=== PATIENT | male | born 1965 | race Caucasian/White ===

== ENCOUNTER → 2020-09-15 13:20 | Outpatient (CLI) | payer OTHER, SELFPAY ==
[2020-09-15] MEDS: COVID-19 VACC #1, MRNA(MOD) 100 MCG/0.5 ML VIAL IM (13:28)
== END ==
PROVIDERS: Visit Provider Internal Medicine
DX: Z23 Encounter for immunization (principal)
CPT/HCPCS: 0011A; 91301

== ENCOUNTER → 2020-10-13 13:09 | Outpatient (CLI) | payer OTHER, SELFPAY ==
[2020-10-13] MEDS: COVID-19 VACC #2, MRNA(MOD) 100 MCG/0.5 ML VIAL IM (13:19)
== END ==
PROVIDERS: Visit Provider Internal Medicine
DX: Z23 Encounter for immunization (principal)
CPT/HCPCS: 0012A; 91301

== ENCOUNTER 2021-06-13 02:02 | Emergency (ER) | payer OTHER, SELFPAY ==
[2021-06-13 02:35] VITALS: BP 176/114; PULSE 74; RESP 20; TEMP 36.3; O2SAT 99
--- NOTE | 2021-06-13 02:56 | DI.CT.S_ITS ---
PROCEDURE: CT CERVICAL SPINE WO CON INDICATIONS: fall, head, neck pain, tingly left arm TECHNIQUE: Noncontrast 3 mm thick sections acquired from the skull base to the T4 level. Sagittal and coronal reformats were then constructed. For radiation dose reduction, the following was used: automated exposure control, adjustment of mA and/or kV according to patient size. COMPARISON: None. FINDINGS: Image quality: Excellent. Bones: No fractures or dislocations. Visualized superior ribs are intact. Moderate degenerative change in the cervical spine. This is demonstrable by multilevel disc osteophyte complexes, intervertebral joint space loss, uncovertebral joint hypertrophy, and prominent osteophytes. Soft tissues: Prevertebral soft tissues are normal in thickness. No paravertebral hematomas. No apical pneumothoraces. IMPRESSION: No acute osseous abnormality. Moderate degenerative change in the cervical spine. This report is concordant with the overnight preliminary interpretation. Dictated by: Oscar Martin M.D. on 06/13/2021 at 8:01 Approved by: Oscar Martin M.D. on 06/13/2021 at 8:04
--- NOTE | 2021-06-13 02:56 | DI.CT.S_ITS ---
PROCEDURE: CT HEAD/BRAIN WO CON INDICATIONS: fall, neck pain, left arm tingly TECHNIQUE: Noncontrast 4.5 mm thick angled axial sections acquired from the foramen magnum to the vertex, with coronal and sagittal reformats. For radiation dose reduction, the following was used: automated exposure control, adjustment of mA and/or kV according to patient size. COMPARISON: None. FINDINGS: Image quality: Excellent. CSF spaces: Basal cisterns are patent. No extra-axial fluid collections. Ventricles are normal in size and shape. Brain: No midline shift. No intracranial masses or hemorrhage. Black-white matter interface is normal. Skull and face: Calvarium and visualized facial bones are intact, without suspicious lesions. Sinuses: Visualized sinuses and mastoids are clear. IMPRESSION: No acute intracranial abnormality. This report is concordant with the overnight preliminary interpretation. Dictated by: Oscar Martin M.D. on 06/13/2021 at 7:54 Approved by: Oscar Martin M.D. on 06/13/2021 at 8:01
--- NOTE | 2021-06-13 02:57 | ED_ITS ---
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 He was not carryng any furniture but he slipped and fell backwards on the ice. He landed on the street and correct the ice with his head. Since then he has continued to have headache in the back of his head and pain in his neck a little bit of tingling down his left arm. He does not appreciate any weakness. He states that he is too uncomfortable to lay flat and has been sleeping in a chair. Patient states movement of his neck is uncomfortable. He has tried ibuprofen which has been helpful he has been having trouble sleeping so finally presented for evaluation. He denies loss of consciousness but states his vision tunneled for short period time immediately afterwards. He has felt stunned. He had some nausea but no vomiting. He states the muscles in his neck and upper back for a very tight. And that most the pain is on the sides of his neck. Patient does not have any other major medical issues. Major surgeries. No allergies to drugs. He does smoke, occasional alcohol, no illicit. Related Data Previous Rx's Medication Instructions Recorded cyclobenzaprine 10 mg tablet 10 mg PO TID PRN #10 tab 06/13/21 hydrocodone 5 mg-acetaminophen 325 1 tab PO QID PRN #10 tab 06/13/21 mg tablet Allergies Allergy/AdvReac Type Severity Reaction Status Date / Time No Known Drug Allergies Allergy Verified 06/13/21 03:23 Review of Systems Review of Systems ROS Unobtainable: All systems reviewed & are unremarkable except as noted in HPI and below Patient History Social History Smoking Status: Current every day smoker Exam Narrative Exam Narrative: GEN: C-collar in ED. Patient appears in mild distress. HEAD: No evidence of trauma, no raccoon/Johnston sign. NECK: Nontender, painless range of motion, trachea midline Positive for Nexus criteria, there is mid line tenderness at C7. No distracting injury, altered mental status, neuro deficit, recent EtOH. EYES: PERRLA, EOMI ENT: External inspection normal, trachea is midline, TM's are normal no hemotypanum, Nares are clear, no septal hematoma, no dental or oral injury, airway is normal and with normal occlusion, No bony tenderness RESP: Chest is nontender and has symmetric movement, no ecchymosis, breath sounds are normal no crackles, wheezes or rales CVS: Heart sounds are normal, no murmur noted, No JVD. ABG/GI: Nontender, soft, normal bowel sounds, no distention, no organomegaly, pelvic rock is negative NEURO: Oriented AOx3, neuro is grossly intact, sensation and motor is normal all 4 extremities moving, cranial nerves II through XII are intact, GCS is 15 PSYCH: Normal mood and affect SKIN: Intact, warm and dry, no crepitus and without decubitus BACK: No CVA tenderness, no vertebral tenderness, no step-off's, no crepitus. Patient has pretty significant muscle tightness bilaterally in the trapezius and latissimus as well as paraspinal muscles. 5/5 muscle strength upper extremities, equal tariff expert bilaterally. Full range of motion. Normal sensation. EXT: Atraumatic, hips are nontender, no pedal edema, 2+ pulses bilateral upper extremities. Initial Vital Signs Initial Vital Signs: Vital Signs Temperature 97.3 F L 06/13/21 02:35 Pulse Rate 74 06/13/21 02:35 Respiratory Rate 20 06/13/21 02:35 Blood Pressure 176/114 H 06/13/21 02:35 Pulse Oximetry 99 06/13/21 02:35 Scores Nexus Score for C-Spine Focal Neurologic deficit present: No Midline spinal tenderness present: Yes Altered level of conciousness present: No Intoxication present: No Distracting Injury Present: No Nexus Criteria for C-spine: 1 Course Orders Ordered: ED Orders 06/13/21 02:56 CT cervical spine wo con Stat CT head/brain wo con Stat Discontinued Medications Cyclobenzaprine HCl (Cyclobenzaprine 10 Mg Prepack) 1 bottle MISC SEEINSTR ONE Stop: 06/13/21 05:35 Ketorolac Tromethamine (Ketorolac 30 Mg/Ml Vial) 30 mg IM NOW ONE Stop: 06/13/21 02:57 Last Admin: 06/13/21 03:18 Dose: 30 mg Documented by: CHANNING Reevaluation(s) Reevaluation #1: Patient had mild improvement with Toradol. We did not give any muscle relaxers here in the department as he drove himself. C-collar was removed after being re-evaluated after CT imaging. He is more comfortable without it. Time: 05:19 Vital Signs Vital signs: Vital Signs - 8 hr 06/13/21 02:35 06/13/21 03:02 06/13/21 03:04 Temperature 97.3 F L Pulse Rate 74 76 68 Respiratory Rate 20 Blood Pressure 176/114 H 156/101 H Pulse Oximetry 99 98 97 06/13/21 03:05 06/13/21 03:30 Temperature 98.2 F Pulse Rate 67 70 Respiratory Rate 18 Blood Pressure 162/109 H Pulse Oximetry 98 96 MDM - Fall Imaging Data CT scan - head: Radiologist's Impression: No acute findings. CT - cervical spine: Radiologist's Impression: No acute findings but there are moderate multi level disc degenerative changes C3 through C7. Multilevel foraminal stenosis greatest at C5-6. No high-grade spinal stenosis noted. [facility] Narrative Medical decision making narrative: This is a 55-year-old male who comes emergency department with a fall from standing level when he slipped and fell on ice cracking the ice. Since then he has had symptoms consistent with concussion, continued headaches, as well as neck pain with majority of his pain on laterally but does have some mild discomfort at the C6 region. Patient has had some tingling in his left upper extremity. 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 Patient's head CT and C-spine are negative except for degenerative changes. Patient had improvement with Toradol. Plan for muscle relaxer and follow-up I suspect he may have had injured the discs in his neck and we discussed this. Referral was given to Orthopedic surgery to follow up as well as option for a call center to establish with PCP. We did discuss return precautions. All questions answered. Discharge Plan Departure Patient Disposition: Home Clinical Impression: Concussion, Cervical strain, acute, DDD (degenerative disc disease), cervical Instructions: DI for Concussion, DI for Whiplash Activity Restrictions/Additional Instructions: Follow-up with either a primary care physician or orthopedic surgery for the degenerative changes and symptoms even having. Referral for Orthopedic surgery is included below. You can call [phone] at the call center to establish with a primary care physician. You may use heat packs or hot showers, hot baths he find these helpful. You may take ibuprofen up to 800 mg every 8 hours. Take Flexeril/muscle relaxer 1 tablet every 8 hours as needed. If inadequate for pain control you may take 1 tablet of narcotic pain medication every 6 hours as needed. This medication can make you sleepy do not drive, perform hazardous activities or make any major decisions while taking it. This medication will make you constipated please take a stool softener once to twice daily until stools are soft and regular. Prescription sent to [facility] in [place]. Please return for severe worsening headaches, passing out, new or worsening numbness, tingling or weakness, difficulty with dinkey locomotive engineer, lifting or moving objects, loss of bowel or bladder control, persistent vomiting or other new or concerning symptoms. Prescriptions: New cyclobenzaprine 10 mg tablet 10 mg PO TID PRN (Reason: muscle spasm) Qty: 10 0RF hydrocodone-acetaminophen 5-325 mg tablet 1 tab PO QID PRN (Reason: pain) Qty: 10 0RF Referrals: Brenda Nielson MD [Physician] - Stand Alone Forms: Work Release Note
[2021-06-13 03:02] VITALS: PULSE 76; O2SAT 98
[2021-06-13 03:04] VITALS: BP 156/101; PULSE 68; O2SAT 97
[2021-06-13 03:05] VITALS: BP 162/109; PULSE 67; RESP 18; TEMP 36.8; O2SAT 98; BMI 25.2
[2021-06-13] MEDS: KETOROLAC 30 MG/ML VIAL IM (03:18)
[2021-06-13 03:30] VITALS: PULSE 70; O2SAT 96
[2021-06-13 05:59] VITALS: BP 152/106; PULSE 70; RESP 18; O2SAT 97
[2021-06-13] MEDS: CYCLOBENZAPRINE 10 MG PREPACK 1 BOTTLE MISC (05:59)
== END 2021-06-13 06:00 | disposition home or self-care (01) ==
PROVIDERS: Emergency Provider Emergency Medicine
DX: S06.0X0A Concussion without loss of consciousness, initial encounter (principal); S16.1XXA Strain of muscle, fascia and tendon at neck level, initial encounter; M50.30 Other cervical disc degeneration, unspecified cervical region; W00.0XXA Fall on same level due to ice and snow, initial encounter; Y99.0 Civilian activity done for income or pay
CPT/HCPCS: 70450; 72125; 96372; 99283; 99284; J1885